=== PATIENT | female | born 2000 | race Two or more races ===

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

== ENCOUNTER → 2024-06-24 | Emergency (ER) | payer MEDICAID ==
[~2024-06-24] MED LIST: DexAMETHasone SOD PHOS 10MG/1ML VIAL INJ ONE; MIDAZOLAM HCL 2MG/2ML 2ml VIAL (1mg/ml) ONE; PROPOFOL 10 MG/ML 20 ML IV ONE; ZOFR4T PO; fentaNYL CITRATE 100 MCG/2 ML VL ONE
== END | disposition left against medical advice (07) ==
LOC: ER 00:07
DX: K29.70 Gastritis, unspecified, without bleeding (principal); F32.A Depression, unspecified; F41.9 Anxiety disorder, unspecified; R11.2 Nausea with vomiting, unspecified; R51.9 Headache, unspecified
CPT/HCPCS: J1100; J2250; J2704

== ENCOUNTER 2025-01-06 00:30 | Emergency (ER) | payer MEDICAID ==
[~2025-01-06] VITALS: Ht 154.9 cm; Wt 32.2 kg
[~2025-01-06 00:30] MED LIST changes: -DexAMETHasone SOD PHOS 10MG/1ML VIAL INJ ONE; -MIDAZOLAM HCL 2MG/2ML 2ml VIAL (1mg/ml) ONE; -PROPOFOL 10 MG/ML 20 ML IV ONE; -fentaNYL CITRATE 100 MCG/2 ML VL ONE
--- NOTE | 2025-01-06 00:42 | ED.PDOC ---
GI ASSESSMENT HPI Comments 24 year old female presents to the ED via EMS with a chief complaint of abdominal pain. Patient states she began experiencing LLQ and RLQ pain radiates to back as well as dizziness, shortness of breath, headache, nausea, vomiting, diarrhea, yellow vaginal discharge. Patient recently found out she is , states she is about 6 weeks. Per EMS, patient was initially experiencing 10/10 pain, was given Tylenol 1g, 500 ml NS, 8 mg Zofran, in route to ED. Upon ED arrival pain has improved, currently 0/10. PMHx ovarian cysts. Denies chest pain,fever, chills, dysuria, hematuria, hematemesis. No other associated symptoms, modifiers, recent injuries or sick contacts present at this time. Time Seen by MD: 00:35 Primary Care Provider: JOSÉ Reviewed Notes: Medications, Allergies Allergies: Coded Allergies: NO KNOWN ALLERGIES (Unverified , 02/06/17) Home Meds Active Scripts Ondansetron Odt 4MG Tab (ZOFRAN PO) 4 Mg Tb, 4 MG PO TID PRN, #30 TAB ODT TAB-DISSOLVE IN MOUTH, THEN SWALLOW Prov:BURT BEAUCHAMP MD 06/24/24 Information Source: Patient, Emergency Med Personnel Mode of Arrival: EMS Timing: Hours Duration: Since onset Prehospital treatment: IVF, Pain Meds (Tylenol 1g), Other (Zofran 8 mg ) Quality: Cramping Severity: Moderate Recent: None Recent Hx of: Current Pain Location: RLQ, LLQ Modifying Factors: Nothing Associated sign and symptoms: Nausea, Vomiting, Diarrhea, Abdominal Pain Past Medical History PAST MEDICAL HISTORY: Denies Surgical History: 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 Family History Family History: Unknown Social History Smoker: Non-Smoker Alcohol: Denies ETOH Use Drugs: Denies Drug Use Lives In: Home Constitutional: denies: chills, diaphoresis, fatigue, fever, malaise, sweats, weakness, others EENTM: denies: blurred vision, double vision, ear bleeding, ear discharge, ear drainage, ear pain, ear ringing, eye pain, eye redness, hearing loss, mouth pain, mouth swelling, nasal discharge, nose bleeding, nose congestion, nose pain, photophobia, tearing, throat pain, throat swelling, voice changes, others Respiratory: reports: shortness of breath; denies: cough, hemoptysis, orthopnea, SOB at rest, SOB with excertion, stridor, wheezing, others Cardiovascular: denies: chest pain, dizzy spells, diaphoresis, Dyspnea on exertion, edema, irregular heart beat, left arm pain, lightheadedness, palpitations, PND, syncope, others Gastrointestinal: reports: abdominal pain (biltateral LQ), diarrhea, nausea, vomiting; denies: abdomen distended, blood streaked bowels, constipated, dysphagia, difficulty swallowing, hematemesis, melena, poor appetite, poor fluid intake, rectal bleeding, rectal pain, others Genitourinary: reports: , vagina discharge (yellow); denies: abnormal vagina bleeding, burning, dyspareunia, dysuria, flank pain, frequency, hematuria, incontinence, pain, urgency, others Neurological: reports: dizziness, headache; denies: fainting, left sided numbness, left sided weakness, numbness, paresthesia, pre-existing deficit, right sided numbness, right sided weakness, seizure, speech problems, tingling, tremors, weakness, others Musculoskeletal: denies: back pain, gout, joint pain, joint swelling, muscle pain, muscle stiffness, neck pain, others Integumetry: denies: bruises, change in color, change in hair/nails, dryness, laceration, lesions, lumps, rash, wounds, others Hematologic/Lymphatic: denies: anemia, blood clots, easy bleeding, easy bruising, swollen glands, others Endocrine: denies: excessive hunger, excessive sweating, excessive thirst, excessive urination, flushing, intolerance to cold, intolerance to heat, unexplained weight gain, unexplained weight loss, others Psychiatric: denies: anxiety, bipolar disorder, depression, hopeless, panic disorder, schizophrenia, sleepless, suicidal, others All Other Systems: Reviewed and Negative Physical Exam General Appearance: Normal HEENT: Normal ENT Inspection, Pharynx Normal, TMs Normal Neck: Full Range of Motion, Non-Tender, Normal, Normal Inspection Respiratory: Chest Non-Tender, Lungs Clear, No Accessory Muscle Use, No Respiratory Distress, Normal Breath Sounds Cardiovascular: No Edema, No JVD, No Murmur, No Gallop, Normal Peripheral Pulses, Regular Rate/Rhythm Breast Exam: Deferred Gastrointestinal: No Organomegaly, Non Tender, No Pulsatile Mass, Normal Bowel Sounds, Soft Genitalia: Deferred Pelvic: Deferred Rectal: Deferred Extremities: No calf tenderness, Normal capillary refill, Normal inspection, Normal range of motion, Non-tender, No pedal edema Musculoskeletal : Apperance: Normal Neurologic: Alert, simplex operator II-XII nml as Tested, No Motor Deficits, Normal Affect, Normal Mood, No Sensory Deficits Cerebellar Function: Normal Reflexes: Normal Skin: Dry, Normal Color, Warm Lymphatic: No Adenopathy Was a procedure done? Was a procedure done?: No GI differential Dx Differential Diagnosis: Complete , Incomplete , Inevitable , Missed , Threatened , Ectopic , Dehydration, Electrolyte Imbalance, , Other X-Ray, Labs, Meds, VS Vital Signs Date Time Temp Pulse Resp B/P (MAP) Pulse Ox O2 Delivery O2 Flow Rate FiO2 01/06/25 00:44 98.8 98 18 132/88 100 98.8 Lab Test 01/06/25 00:50 01/06/25 00:44 Range/Units Urine Color Colorless Yellow Urine Clarity Turbid H Clear Urine pH 6.5 5.0-9.0 Urine Specific [place] 1.004 1.001-1.035 Urine Protein Negative Negative Urine Ketones Negative Negative Urine Blood Negative Negative /uL Urine Nitrite Negative Negative Urine Bilirubin Negative Negative Urine Urobilinogen Normal Negative mg/dL Urine Leukocyte Esterase Negative Negative /uL Urine RBC None seen 0 - 4 /hpf Urine Microscopic WBC 3 0-5 /HPF Urine Squamous Epithelial Cells Few <5 /hpf Urine Bacteria None seen None Seen /hpf Urine Glucose 3+ H Normal mg/dL White Blood Count 9.0 4.4-10.8 10^3/uL Red Blood Count 4.30 4.0-5.20 10^6/uL Hemoglobin 13.5 12.2-16.2 g/dL Hematocrit 38.1 36.0-46.0 % Mean Corpuscular Volume 88.6 80.0-100.0 fL Mean Corpuscular Hemoglobin 31.4 28.0-32.0 pg Mean Corpuscular Hemoglobin Concent 35.5 32.0-36.0 g/dL Red Cell Distribution Width 12.3 11.8-14.3 % Platelet Count 198 140-450 10^3/uL Mean Platelet Volume 9.8 6.9-10.8 fL Neutrophils (%) (Auto) 73.3 37.0-80.0 % Lymphocytes (%) (Auto) 19.0 10.0-50.0 % Monocytes (%) (Auto) 7.2 0.0-12.0 % Eosinophils (%) (Auto) 0.2 0.0-7.0 % Basophils (%) (Auto) 0.3 0.0-2.0 % Neutrophils # (Auto) 6.6 1.6-8.6 10 ^3/uL Lymphocytes # (Auto) 1.7 0.4-5.4 10 ^3/uL Monocytes # (Auto) 0.7 0-1.3 10 ^3/uL Eosinophils # (Auto) 0 0-0.8 10 ^3/uL Basophils # (Auto) 0 0-0.2 10 ^3/uL Nucleated Red Blood Cells 0.0 % Sodium Level 140 136-145 mmol/L Potassium Level 3.3 L 3.5-5.1 mmol/L Chloride Level 110 H 98-107 mmol/L Carbon Dioxide Level 20 20-31 mmol/L Anion Gap 10 5-15 Blood Urea Nitrogen 8 L 9-23 mg/dL Creatinine 0.56 0.550-1.02 mg/dL Glomerular Filtration Rate Calc 130 >90 mL/min BUN/Creatinine Ratio 14.3 10.0-20.0 Serum Glucose 101 74-106 mg/dL Calcium Level 8.4 L 8.7-10.4 mg/dL Beta HCG, Quantitative 76096.6 H 1.5-4.2 mIU/mL Time of 1ST Reevaluation: 01:05 Reevaluation 1ST: Unchanged Patient Education/Counseling: Diagnosis, Treatment, Prognosis Family Education/Counseling: No Family Present Additional Information The following tests were ordered, and results were reviewed by me:CBC, BETA HCG, UA, BMP, US OB COMP LESS 14 WEEKS Additional Information was gathered from interviewing the following independent historians: EMS I reviewed and agreed with the following test results read by other providers: US OB COMP LESS 14 WEEKS I discussed treatment and results with medical personnel and: patient Comprehensive systems review obtained and negative except for what is stated in the HPI. SEPSIS Sepsis Screen Physician Orders Ob Ultrasound Comp Less 14wks (01/06/25 00:37) Ob Trans Vaginal Us (01/06/25 02:33) Vital Signs Date Time Temp Pulse Resp B/P (MAP) Pulse Ox O2 Delivery O2 Flow Rate FiO2 01/06/25 00:44 98.8 98 18 132/88 100 98.8 Laboratory Tests Test 01/06/25 00:44 White Blood Count 9.0 10^3/uL (4.4-10.8) Departure 1 Departure Time of Disposition: 04:00 Impression: Primary Impression: Adnexal mass Additional Impression: Threatened miscarriage Disposition: HOME / SELF CARE / HOMELESS Condition: Stable Discharged With: Self Critical Care Note Critical Care Time?: No Stability Stability form required: No I personally scribed for DALE LENNON MD ([email or web address]) on 01/06/25 at 00:42. Electronically submitted by Jackeline Bronson ([email or web address]). I personally scribed for DALE LENNON MD ([email or web address]) on 01/06/25 at 00:42. Electronically submitted by Jackeline Bronson ([email or web address]). DALE LENNON MD Jan 06, 2025 00:42
[2025-01-06 00:55] LABS: Hematocrit 38.1 % (36.0-46.0); Hemoglobin 13.5 g/dL (12.2-16.2); Mean Corpuscular Hemoglobin 31.4 pg (28.0-32.0); Mean Corpuscular Volume 88.6 fL (80.0-100.0); Nucleated Red Blood Cells % 0.0 %
[2025-01-06 01:05] LABS: Sodium 140 mmol/L (136-145)
[2025-01-06 01:06] LABS: Anion Gap 10 (5-15)
[2025-01-06 01:11] LABS: BUN/Creatinine Ratio 14.3 (10.0-20.0); Calcium 8.4 mg/dL (8.7-10.4); Carbon Dioxide 20 mmol/L (20-31); Chloride 110 mmol/L (98-107); Glucose 101 mg/dL (74-106); Potassium 3.3 mmol/L (3.5-5.1)
[2025-01-06 01:22] LABS: Blood Urea Nitrogen 8 mg/dL (9-23)
[2025-01-06 01:26] LABS: Urine Protein, UAD Negative (Negative)
--- NOTE | 2025-01-06 03:27 | DVH ---
OB ULTRASOUND <14 WEEKS: HISTORY: abd pain, 6 wks TECHNIQUE: Multiple real-time grayscale sonographic images of the pelvis with duplex Doppler color f low, spectral and M-mode analysis. COMPARISON: None FINDINGS: The uterus is retroverted and measures 8.2 x 5.8 x 5.2 cm. No pelvic cul-de-sac free fluid. Right ovary measures 3.0 x 2.6 x 1.7 cm with normal Doppler color flow. Left ovary measures 2.8 x 2.8 x 1.8 cm with normal Doppler color flow. 1.8 x 1.7 x 1.7 cm complex alin id and cystic structure with peripheral vascularity. IUP single fetus at 5 weeks 4 days average ultrasound age based on gestational sac size of 1.4 cm id entified at the fundus. heart rate not appreciated. Yolk sac identified. IMPRESSION: 1. IUP at 5 weeks 4 days AUA corresponding to an AGUEDA of 09/04/2025 with yolk sac identified. No ident ifiable pole or heart tones at this time. 2. Complex solid and cystic right adnexal lesion.
[2025-01-06 05:09] VITALS: BP 131/75; PULSE 60; TEMP 98.1
[2025-01-06 05:12] VITALS: RESP 16; O2SAT 94
== END 2025-01-06 05:35 | disposition home or self-care (01) ==
LOC: EDBD 00:30 → ER 00:30
DX: O20.0 Threatened abortion (principal); D23.9 Other benign neoplasm of skin, unspecified; Z79.899 Other long term (current) drug therapy; Z3A.01 Less than 8 weeks gestation of pregnancy
CPT/HCPCS: 36415; 76801; 76817; 80048; 81001; 84702; 85025

== ENCOUNTER 2025-02-14 22:11 | Emergency (ER) | payer MEDICAID ==
[~2025-02-14] VITALS: Ht 149.9 cm; Wt 29.5 kg
--- NOTE | 2025-02-14 23:24 | ECG ---
[facility] [place] Test Date: 2025-02-14 Test Time: 22:16:15 Pat Name: KARLIE AGUIRRE Department: Room: Gender: F Supervisor [employer] Processing: ZACHARY : 2000 Requested By: EMERGENCY EMERGENCY Order Number: [id number] Reading MD: Measurements Intervals [place] Rate: 70 P: 62 NE: 133 QRS: 66 QRSD: 78 T: 57 QT: 377 QTc: 407 Interpretive Statements Sinus rhythm Please click the below link to view image of tracing.
[2025-02-14 23:40] LABS: Hematocrit 45.2 % (36.0-46.0); Hemoglobin 15.8 g/dL (12.2-16.2); Mean Corpuscular Hemoglobin 31.4 pg (28.0-32.0); Mean Corpuscular Volume 89.8 fL (80.0-100.0); Nucleated Red Blood Cells % 0.1 %
[2025-02-14] MEDS: SODIUM CHLORIDE 0.9% 1,000 ML IV ONE (23:47)
[2025-02-14 23:57] LABS: Alanine Aminotransferase 17 U/L (7-40); Alkaline Phosphatase 54 U/L (46-116); Anion Gap 10 (5-15); BUN/Creatinine Ratio 10.5 (10.0-20.0); Calcium 9.9 mg/dL (8.7-10.4); Carbon Dioxide 25 mmol/L (20-31); Chloride 107 mmol/L (98-107); Potassium 4.0 mmol/L (3.5-5.1); Sodium 142 mmol/L (136-145)
[2025-02-15 00:11] LABS: Albumin 5.2 g/dL (3.2-4.8); Bilirubin, Total 1.7 mg/dL (0.2-1.0); Blood Urea Nitrogen 8 mg/dL (9-23); Glucose 69 mg/dL (74-106); Total Protein 8.3 g/dL (5.7-8.2)
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
[2025-02-15 01:09] LABS: Acetaminophen < 2.0 UG/ML (10.0-20.0); Salicylate < 3.0 mg/dL (-30)
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
[2025-02-15 01:30] VITALS: RESP 14
[2025-02-15 01:46] LABS: Amphetamine Screen, Urine Neg (NEGATIVE); Barbiturate Scree,Urine Neg (NEGATIVE); Benzodiazephine Screen, Urine Neg (NEGATIVE); Cannabinoid Screen, Urine Pos (NEGATIVE); Cocaine Screen, Urine Neg (NEGATIVE); Opiate Scree,Urine Neg (NEGATIVE); Phencyclidine Screen, Urine Neg (NEGATIVE)
[2025-02-15 08:00] VITALS: RESP 14
[2025-02-15 09:30] VITALS: PULSE 99; RESP 16; O2SAT 97
[2025-02-15 12:59] LABS: Urine Protein, UAD Negative (Negative)
[2025-02-15] MEDS: ACETAMINOPHEN 500 MG TAB or CAP PO ONE (16:49)
[2025-02-15 17:36] VITALS: BP 103/70; PULSE 74; RESP 16; O2SAT 96
[2025-02-15 17:37] VITALS: TEMP 98.3
== END 2025-02-15 17:37 | disposition home or self-care (01) ==
LOC: EDBD 22:11 → ER 22:21
DX: R45.851 Suicidal ideations (principal); T40.712A Poisoning by cannabis, intentional self-harm, initial encounter; F10.10 Alcohol abuse, uncomplicated; F32.9 Major depressive disorder, single episode, unspecified; Z79.899 Other long term (current) drug therapy; Y92.89 Other specified places as the place of occurrence of the external cause
CPT/HCPCS: 36415; 80053; 80307; 80320; 80329; 81001; 81025; 85025; 93005; 96360; 99285; J7030